=== PATIENT | male | born 1970 | race African-American/Black ===

== ENCOUNTER 2021-06-10 19:34 | Inpatient (IN) | payer OTHER ==
[~2021-06-10] VITALS: Ht 180.3 cm; Wt 86.2 kg
[2021-06-10] MEDS ORDERED: MORPHINE SULFATE 4 MG/ML CPJ (NOT FOR IM USE) IV STA (20:43)
[2021-06-10] MEDS ORDERED: ONDANSETRON HCL 4MG/2ML INJ IV STA (20:43)
[2021-06-10] MEDS ORDERED: SODIUM CHLORIDE 0.9% 1,000 ML IV ONE (20:45)
[2021-06-10] MEDS ORDERED: TETANUS, DIPHTHERIA, PERTUSSIS VAC/PF 0.5ML (>10YR OLD) IM ONE (21:00)
[2021-06-10] MEDS ORDERED: LIDOCAINE HCL/EPINEPHRINE 1%-EPI 1:100,000 20 ML VIAL INFIL ONE (21:00)
[2021-06-10] MEDS ORDERED: BACITRACIN ZINC OINT UDPKT TOP ONE (21:00)
[2021-06-10 23:00] LABS: BASOPHILS % 0.1 % (0.0-2.0); EOSINOPHILS % 0.2 % (0.0-5.0); HEMATOCRIT. 46.7 % (42.0-52.0); HEMOGLOBIN. 15.3 g/dL (14.0-18.0); LYMPHOCYTES % 11.4 % (20.0-50.0); MEAN CORPUSCULAR HEMOGLOBIN 30.9 pg (28.0-32.0); MEAN CORPUSCULAR VOLUME 94.3 fL (80.0-94.0); MEAN PLATELET VOLUME 7.4 fl (7.4-10.4); MONOCYTES % 3.8 % (2.0-8.0); NEUTROPHILS % 84.5 % (40.0-76.0); PLATELET 261 x1000/uL (130-400); RED BLOOD CELL COUNT 4.95 mill/uL (4.7-6.1)
[2021-06-10 23:07] LABS: CHLORIDE 108 mEq/L (98-107)
[2021-06-10 23:11] LABS: ETHANOL BLOOD 292 mg/dL
[2021-06-10 23:16] LABS: PARTIAL THROMBOPLASTIN TIME 26.5 sec (23.4-31.0); PROTHROMBIN TIME 10.3 sec (9.6-11.0)
[2021-06-10] MEDS ORDERED: NALOXONE HCL 0.4 MG/ML 1ML VIAL IV PRN (23:45)
[2021-06-11] MEDS ORDERED: ONDANSETRON HCL 4MG/2ML INJ IV PRN
[2021-06-11] MEDS ORDERED: MORPHINE SULFATE 2 MG/ML CPJ (NOT FOR IM USE) IV PRN
[2021-06-11] MEDS ORDERED: ACETAMINOPHEN 325MG TABLET PO PRN
[2021-06-11] MEDS ORDERED: SODIUM CHLORIDE 0.9% 1,000 ML IV SCH
[2021-06-11 05:44] LABS: BASOPHILS % 0.4 % (0.0-2.0); CHLORIDE 112 mEq/L (98-107); EOSINOPHILS % 0.2 % (0.0-5.0); HEMATOCRIT. 38.1 % (42.0-52.0); LYMPHOCYTES % 21.1 % (20.0-50.0); MEAN CORPUSCULAR HEMOGLOBIN 31.9 pg (28.0-32.0); MEAN CORPUSCULAR VOLUME 93.2 fL (80.0-94.0); MEAN PLATELET VOLUME 7.4 fl (7.4-10.4); MONOCYTES % 6.1 % (2.0-8.0); NEUTROPHILS % 72.2 % (40.0-76.0); PLATELET 219 x1000/uL (130-400); RED BLOOD CELL COUNT 4.09 mill/uL (4.7-6.1); RED CELL DISTRIBUTION WIDTH 13.9 % (11.6-14.6)
[2021-06-11 05:49] LABS: PHOSPHORUS 3.9 mg/dL (2.5-4.9)
[2021-06-11] MEDS: ENOXAPARIN 40MG/0.4ML SYR SUBCUT SCH (09:29)
[2021-06-11 11:30] VITALS: BP 198/122
[2021-06-11] MEDS: AMLODIPINE 10MG TABLET PO SCH (11:41)
[2021-06-11] MEDS: HYDRALAZINE HCL 100MG TABLET PO SCH ×3 (11:41→20:42)
[2021-06-11] MEDS: HYDROCODONE/ACETAMINOPHEN 5/325MG TABLET PO PRN ×2 (11:46→20:41)
[2021-06-11 12:00] VITALS: BP 197/121
[2021-06-11] MEDS ORDERED: INFLUENZA VACCINE 05/PF 0.5 ML SYRINGE IM ONE (14:15)
[2021-06-11] MEDS: FOLIC ACID 1MG TABLET PO SCH (14:16)
[2021-06-11] MEDS: THIAMINE HCL 100MG TABLET PO SCH (14:16)
[2021-06-11] MEDS: CLONIDINE 0.1MG TABLET PO PRN ×2 (14:17→23:58)
[2021-06-11] MEDS: MULTIVITAMINS,THER W-MINERALS TABLET PO SCH (14:17)
[2021-06-11 14:40] VITALS: BP 168/94
[2021-06-11] MEDS: CHLORDIAZEPOXIDE 25MG CAPSULE PO SCH ×2 (15:11→20:41)
[2021-06-11 16:00] VITALS: BP_SYST 131; BP_SYST 197; BP_DIAS 121; BP_DIAS 83
[2021-06-11] MEDS ORDERED: LORAZEPAM 2MG/ML CPJ IV PRN ×2 (16:00)
[2021-06-11] MEDS: SODIUM CHLORIDE 0.45% 1,000 ML IV SCH (16:20)
[2021-06-11 20:00] VITALS: BP 163/100
[2021-06-12] VITALS: BP 139/94
[2021-06-12 04:00] VITALS: BP 149/96
[2021-06-12] MEDS: HYDROCODONE/ACETAMINOPHEN 5/325MG TABLET PO PRN (05:31)
[2021-06-12] MEDS: HYDRALAZINE HCL 100MG TABLET PO SCH ×2 (05:31→13:27)
[2021-06-12] MEDS: CHLORDIAZEPOXIDE 25MG CAPSULE PO SCH ×2 (05:31→13:27)
[2021-06-12 08:00] VITALS: BP 128/76
[2021-06-12] MEDS: THIAMINE HCL 100MG TABLET PO SCH (09:14)
[2021-06-12] MEDS: FOLIC ACID 1MG TABLET PO SCH (09:14)
[2021-06-12] MEDS: SODIUM CHLORIDE 0.45% 1,000 ML IV SCH (09:14)
[2021-06-12] MEDS: MULTIVITAMINS,THER W-MINERALS TABLET PO SCH (09:14)
[2021-06-12] MEDS: AMLODIPINE 10MG TABLET PO SCH (09:15)
[2021-06-12] MEDS: ENOXAPARIN 40MG/0.4ML SYR SUBCUT SCH (09:16)
[2021-06-12 12:00] VITALS: BP 129/83
[2021-06-12 16:00] VITALS: BP 140/90
[2021-06-12] MEDS ORDERED: AMLO10TA80 PO (16:25)
[2021-06-12] MEDS ORDERED: THIA100T72 PO (16:25)
[2021-06-12] MEDS ORDERED: HYDR100T26 PO (16:25)
[2021-06-12 16:47] VITALS: BP 140/90
== END 2021-06-12 18:15 | disposition home or self-care (01) | DRG 74 ==
LOC: ER 19:34 → EDBD 19:34 → ENRESERV 06-11 09:57 → 5WST 06-11 11:07
PROVIDERS: ADMIT Internal Medicine Nephrology; ATTEND Internal Medicine Nephrology
PROC: 0HQ1XZZ Repair Face Skin, External Approach (ICD-10-PCS; principal; 2021-06-11)
DX: G90.8 Other disorders of autonomic nervous system (principal); K86.1 Other chronic pancreatitis; M48.54XA Collapsed vertebra, not elsewhere classified, thoracic region, initial encounter for fracture; I16.0 Hypertensive urgency; F10.129 Alcohol abuse with intoxication, unspecified; E87.8 Other disorders of electrolyte and fluid balance, not elsewhere classified; I10 Essential (primary) hypertension; D72.829 Elevated white blood cell count, unspecified; Z20.822 Contact with and (suspected) exposure to COVID-19; S01.81XA Laceration without foreign body of other part of head, initial encounter; S01.112A Laceration without foreign body of left eyelid and periocular area, initial encounter; W11.XXXA Fall on and from ladder, initial encounter; Y93.89 Activity, other specified; Y92.89 Other specified places as the place of occurrence of the external cause; Y99.8 Other external cause status
CPT/HCPCS: 36415; 70480; 71045; 72128; 72131; 80048; 80053; 80320; 83735; 84100; 84484; 85025; 86850; 86900; 87426; 90686; 90715; 93005; 99285; J1650; J2270; J2405; J3490; J7030; L0172; G0480